=== PATIENT | male | born 1980 | race Caucasian/White ===

== ENCOUNTER 2021-03-23 20:00 | Outpatient (CLI) | payer OTHER, SELFPAY | END 2021-03-23 20:01 | disposition home or self-care (01) | LOC: SLEEP 03-24 06:18 | PROVIDERS: Family Provider Family Medicine; PCP Family Medicine; Visit Provider Family Medicine | DX: G47.33 Obstructive sleep apnea (adult) (pediatric) (principal) | CPT/HCPCS: 95811 ==

== ENCOUNTER → 2021-11-03 13:46 | Outpatient (BNVA) | payer OTHER, SELFPAY | PROVIDERS: Family Provider Family Medicine; PCP Family Medicine; Visit Provider Internal Medicine Pulmonary Disease | DX: G47.33 Obstructive sleep apnea (adult) (pediatric) (principal); E66.01 Morbid (severe) obesity due to excess calories; Z68.42 Body mass index [BMI] 45.0-49.9, adult; R06.02 Shortness of breath; Z87.891 Personal history of nicotine dependence; Z91.19 Patient's noncompliance with other medical treatment and regimen | CPT/HCPCS: 99204 ==

== ENCOUNTER 2022-01-21 13:04 | Outpatient (CLI) | payer OTHER, SELFPAY | END 2022-01-21 13:05 | disposition home or self-care (01) | LOC: RT 13:04 | PROVIDERS: PCP Family Medicine; Visit Provider Internal Medicine Pulmonary Disease | DX: G47.33 Obstructive sleep apnea (adult) (pediatric) (principal); E66.01 Morbid (severe) obesity due to excess calories; Z68.42 Body mass index [BMI] 45.0-49.9, adult | CPT/HCPCS: 94010; 94618; 94726; 94729 ==

== ENCOUNTER → 2022-03-05 10:48 | Outpatient (BNVA) | payer OTHER, SELFPAY | PROVIDERS: PCP Family Medicine; Visit Provider Internal Medicine Pulmonary Disease | DX: G47.33 Obstructive sleep apnea (adult) (pediatric) (principal); E66.01 Morbid (severe) obesity due to excess calories; Z68.42 Body mass index [BMI] 45.0-49.9, adult | CPT/HCPCS: 99214 ==

== ENCOUNTER 2022-06-18 15:17 | Emergency (ER) | payer OTHER, SELFPAY ==
[2022-06-18 15:26] VITALS: BP 143/88; PULSE 86; RESP 16; TEMP 36.6; O2SAT 96; BMI 52.3
[2022-06-18 16:00] LABS: Basophils % 0.5 %; Eosinophils # 0.2 10^3/uL (0.0-0.8); Eosinophils % 3.4 %; Hematocrit 42.3 % (42.0-52.0); Hemoglobin 13.5 g/dL (11.7-16.6); Lymphocytes # 1.2 10^3/uL (0.8-4.8); Lymphocytes % 21.2 %; Mean Corpuscular HGB Conc 31.9 g/dL (30.0-36.0); Mean Platelet Volume 9.8 fL (7.4-10.4); Monocytes # 0.4 10^3/uL (0.2-0.9); Monocytes % 7.1 %; Neutrophils # 3.79 10^3/uL (1.8-7.7); Neutrophils % 67.4 %; Nucleated Red Blood Cells % 0 %; Platelet Count 204 10^3/cmm (130-400); Red Blood Count 4.65 10^6/uL (4.1-5.3); Red Cell Distribution Width 12.3 % (12.1-15.1); White Blood Count 5.6 10^3/uL (4.0-10.0)
[2022-06-18 16:25] LABS: Alanine Aminotransferase 15 U/L (0-41); Albumin Level 3.8 g/dL (3.5-5.2); Alkaline Phosphatase 69 U/L (40-130); Anion Gap 13.8 (5-19); Aspartate Amino Transferase 12 U/L (0-40); Blood Urea Nitrogen 15 mg/dL (6-20); Calcium 8.9 mg/dL (8.5-10.5); Carbon Dioxide 28 mmol/L (22-29); Chloride 100 mmol/L (98-107); Globulin 2.2 g/dL (1.3-4.6); Glomerular Filtration Rate 66.4 mL/min (90-130); Glucose 127 mg/dL (65-115); Osmolality Calculated 288 mOsm/kg (285-295); Potassium 3.8 mmol/L (3.5-5.1); Sodium 138 mmol/L (136-145); Total Bilirubin 0.3 mg/dL (0.15-1.2)
--- NOTE | 2022-06-18 16:29 | PC.PHAR ---
[facility]ED [facility] AT 4:30 PM 06/18/22
--- NOTE | 2022-06-18 16:31 | ED_ITS ---
HPI - GI Bleed General: Chief complaint: GI Bleed Stated complaint: rectal bleeding Time Seen by Provider: 06/18/22 16:22 History of Present Illness: 41-year-old male patient comes in today for complaints of bleeding from the rectum. Patient reports he had a bowel movement and noticed blood in the toilet afterwards. Patient denies any pain or discomfort. Patient has a history of anxiety, high cholesterol, hypertension, and obesity. Patient reports the blood was bright red. Associated symptoms: Denies fever(s) or rash Review of Systems Const: Denies: fever(s) Card: Denies: chest pain Resp: Denies: dyspnea GI: Reports: hematochezia : Denies: flank pain Musc: Denies: back pain Skin/Breast: Denies: rash PFSH ED PFSH: Medical History Hypertension KATHERINE (obstructive sleep apnea) Social History Smoking and tobacco status: former smoker Quit status (tobacco): has quit using tobacco Year quit tobacco: 2009 Former quit date comment: 1ppd x 4-5 years Second hand smoke exposure: Yes Physical Exam Const: COMMON NORMALS: alert HENMT: COMMON NORMALS: normocephalic HEAD & SCALP: normocephalic Neck/C-Spine: COMMON NORMALS: full ROM Resp: COMMON NORMALS: normal respiratory effort Cardio: COMMON NORMALS: regular rate and regular rhythm RATE: regular rate RHYTHM: regular rhythm GI: COMMON NORMALS: Soft to palpation and non-tender PALPATION: Yes Soft to palpation RECTAL EXAM: Yes normal sphincter tone, Yes heme positive stool and Yes hemorrhoids : COMMON NORMALS: Yes Testes normal Extremity: COMMON NORMALS: normal to inspection Neuro: SENSORIUM/ORIENTATION: Yes alert Skin: COMMON NORMALS: turgor normal GENERAL SKIN EXAM: turgor normal Course Vital Signs: Vital signs: Vital Signs Temperature 98 F 06/18/22 15:26 Pulse Rate 86 06/18/22 15:26 Respiratory Rate 14 06/18/22 16:53 Blood Pressure 143/88 06/18/22 15:26 Pulse Oximetry 96 06/18/22 15:26 Oxygen Delivery Me thod Room Air 06/18/22 15:26 MDM - GI Bleed Medical Decision Making 41-year-old male patient comes in today for complaints of blood in stool. On exam patient has no abdominal pain. Skin is warm and dry. Vital signs are normal. Rectal examination noted multiple large external hemorrhoids and faint blood. Digital exam noted internal hemorrhoids and a small amount of blood. Hemoccult was positive. Differential diagnosis includes not limited to colitis, hemorrhoids, anal fissure. No signs of severe infection or illness was noted. I believe the patient probably has hemorrhoids. We will refer for gastroenterology/surgical follow-up for further evaluation with endoscopy to rule out other causes of blood in stool. Laboratory values were unremarkable. No signs of significant anemia was noted. Patient reported understanding of care plan and need for follow-up or return to the ER. Lab Data 06/18/22 15:43 06/18/22 15:43 Laboratory Results WBC 5.6 10^3/uL (4.0-10.0) 06/18/22 15:43 RBC 4.65 10^6/uL (4.1-5.3) 06/18/22 15:43 Hgb 13.5 g/dL (11.7-16.6) 06/18/22 15:43 Hct 42.3 % (42.0-52.0) 06/18/22 15:43 MCV 91.0 fl (80-94) 06/18/22 15:43 MCH 29.0 pg (28.0-34.0) 06/18/22 15:43 MCHC 31.9 g/dL (30.0-36.0) 06/18/22 15:43 RDW 12.3 % (12.1-15.1) 06/18/22 15:43 Plt Count 204 10^3/cmm (130-400) 06/18/22 15:43 MPV 9.8 fL (7.4-10.4) 06/18/22 15:43 Neut % (Auto) 67.4 % 06/18/22 15:43 Lymph % (Auto) 21.2 % 06/18/22 15:43 [place] % (Auto) 7.1 % 06/18/22 15:43 Eos % (Auto) 3.4 % 06/18/22 15:43 Baso % (Auto) 0.5 % 06/18/22 15:43 Neut # (Auto) 3.79 10^3/uL (1.8-7.7) 06/18/22 15:43 Lymph # (Auto) 1.2 10^3/uL (0.8-4.8) 06/18/22 15:43 [place] # (Auto) 0.4 10^3/uL (0.2-0.9) 06/18/22 15:43 Eos # (Auto) 0.2 10^3/uL (0.0-0.8) 06/18/22 15:43 Baso # (Auto) 0.0 10^3/uL (0.0-0.1) 06/18/22 15:43 Nucleated RBC % (auto) 0 % 06/18/22 15:43 Nucleated RBCs # 0.0 /100WBC 06/18/22 15:43 Sodium 138 mmol/L (136-145) 06/18/22 15:43 Potassium 3.8 mmol/L (3.5-5.1) 06/18/22 15:43 Chloride 100 mmol/L (98-107) 06/18/22 15:43 Carbon Dioxide 28 mmol/L (22-29) 06/18/22 15:43 Anion Gap 13.8 (5-19) 06/18/22 15:43 BUN 15 mg/dL (6-20) 06/18/22 15:43 Creatinine 1.2 mg/dL (0.7-1.2) 06/18/22 15:43 GFR Calculation 66.4 mL/min (90-130) L 06/18/22 15:43 Glucose 127 mg/dL (65-115) H 06/18/22 15:43 Calculated Osmolality 288 mOsm/kg (285-295) 06/18/22 15:43 Calcium 8.9 mg/dL (8.5-10.5) 06/18/22 15:43 Total Bilirubin 0.3 mg/dL (0.15-1.2) 06/18/22 15:43 AST 12 U/L (0-40) 06/18/22 15:43 ALT 15 U/L (0-41) 06/18/22 15:43 Alkaline Phosphatase 69 U/L (40-130) 06/18/22 15:43 Total Protein 6.0 g/dL (6.6-8.7) L 06/18/22 15:43 Albumin 3.8 g/dL (3.5-5.2) 06/18/22 15:43 Globulin 2.2 g/dL (1.3-4.6) 06/18/22 15:43 Discharge Plan Discharge Patient Disposition: Home Clinical Impression: Hemorrhoids, internal, with bleeding Condition: Stable Prescriptions: New Anusol-HC 25 mg suppository 25 mg OH BID 14 Days Qty: 24 0RF Hemorrhoidal(PE-min oil-shanel) 0.25-14-74.9 % ointment 1 applic OH TID Qty: 56 0RF Colace 100 mg capsule 100 mg PO BID Qty: 60 0RF cephalexin 500 mg capsule 500 mg PO BID 7 Days Qty: 14 0RF No Action sertraline 200 mg capsule 200 mg PO DAILY pravastatin 40 mg tablet 40 mg PO DAILY hydrochlorothiazide 12.5 mg tablet 12.5 mg PO DAILY ketoconazole 2 % cream 1 applic topical BID Qty: 30 2RF Rx Instructions: To pink scaly areas on face as needed ketoconazole 2 % shampoo 1 applic topical .2 x weekly Qty: 120 3RF Rx Instructions: Lather into scalp 2 times weekly. Allow to sit on scalp for 5 minutes before rinsing. valacyclovir 500 mg tablet 500 mg PO BID PRN (Reason: outbreak) prazosin 1 mg capsule 3 mg PO .qhs bupropion HCl 100 mg tablet 100 mg PO DAILY Discharge Orders: Discharge ED (Routine); Ordered 06/18/22 Ordered By: Josue Lo Referrals: Shannon Kaminski MD [Primary Care Provider] - Discharge Diet: Usual diet Discharge Activity: Resume usual activity Patient Instructions: Hemorrhoids (ED) Activity Restrictions/Additional Instructions: Follow-up with primary care. competitive intelligence manager will contact you for follow-up with GI specialist for further evaluation and treatment. Drink plenty of water. Use stool softener to keep stools soft and moving easily. Avoid sitting for long long periods on the toilet. Use Anusol suppository twice a day for the next 2 weeks to help with swelling and inflammation of the hemorrhoid. Use hemorrhoid ointment for further comfort. Return to ER for worsening symptoms such as high fever, severe abdominal pain, feeling of fainting. Coding Level of Care Code ED Vegetable Canner for Chg Fwd
[2022-06-18 16:53] VITALS: RESP 14
== END 2022-06-18 17:04 | disposition home or self-care (01) ==
PROVIDERS: Emergency Provider Nurse Practitioner Family; PCP Family Medicine
DX: K64.8 Other hemorrhoids (principal); I10 Essential (primary) hypertension; Z87.891 Personal history of nicotine dependence
CPT/HCPCS: 36415; 80053; 85025; 99284

== ENCOUNTER → 2022-09-02 13:09 | Outpatient (BNVA) | payer OTHER, SELFPAY | PROVIDERS: PCP Family Medicine; Visit Provider Internal Medicine Pulmonary Disease | DX: G47.33 Obstructive sleep apnea (adult) (pediatric) (principal); E66.01 Morbid (severe) obesity due to excess calories; Z68.43 Body mass index [BMI] 50.0-59.9, adult; Z91.199 Patient's noncompliance with other medical treatment and regimen due to unspecified reason | CPT/HCPCS: 99214 ==

== ENCOUNTER → 2023-03-03 14:54 | Outpatient (BNVA) | payer OTHER, SELFPAY | PROVIDERS: PCP Family Medicine; Visit Provider Internal Medicine Pulmonary Disease | DX: G47.33 Obstructive sleep apnea (adult) (pediatric) (principal); E66.01 Morbid (severe) obesity due to excess calories; Z68.39 Body mass index [BMI] 39.0-39.9, adult; Z91.198 Patient's noncompliance with other medical treatment and regimen for other reason | CPT/HCPCS: 99214 ==

== ENCOUNTER → 2023-06-17 11:07 | Outpatient (BNVA) | payer OTHER, SELFPAY | PROVIDERS: PCP Family Medicine; Visit Provider Internal Medicine Pulmonary Disease | DX: G47.33 Obstructive sleep apnea (adult) (pediatric) (principal); E66.01 Morbid (severe) obesity due to excess calories; Z68.42 Body mass index [BMI] 45.0-49.9, adult; Z87.891 Personal history of nicotine dependence | CPT/HCPCS: 99214 ==

== ENCOUNTER 2023-09-17 01:18 | Emergency (ER) | payer OTHER, SELFPAY ==
[2023-09-17 01:26] VITALS: BP 155/105; PULSE 99; RESP 16; TEMP 36.7; O2SAT 95; BMI 53.8
--- NOTE | 2023-09-17 01:39 | W.ED.DENTAL ---
HPI - Dental/Oral General: Chief complaint: Dental/Oral Stated complaint: dental pain left side upper jaw into ear lower jaw Time Seen by Provider: 09/17/23 01:36 History of Present Illness: Patient presents here with complaints of left upper molar cavity and pain. He says he been to his doctor within the last week and they prescribed him amoxicillin which he has been taking but it did not seem to work. Patient said this afternoon he had a sharp increase in pain now feels like it is going up into his jaw into his ear. Patient did take an old oxycodone he had about 2 hours ago with no relief. Patient says his dentist tried to get him in somewhere to have a crown or root canal placed. Related Data Home Medications Medication Instructions Recorded Confirmed hydrochlorothiazide 12.5 mg tablet 12.5 mg PO DAILY 06/18/21 06/17/23 pravastatin 40 mg tablet 40 mg PO DAILY 06/18/21 06/17/23 sertraline 200 mg capsule 200 mg PO DAILY 06/18/21 06/17/23 valacyclovir 500 mg tablet 500 mg PO BID PRN outbreak 11/03/21 06/17/23 prazosin 1 mg capsule 4 mg PO .qhs 03/03/23 06/17/23 Previous Rx's Medication Instructions Recorded ketoconazole 2 % shampoo 1 applic topical .2 x weekly #120 06/18/21 mL ketoconazole 2 % topical cream 1 applic topical BID #30 grams 06/18/21 clindamycin HCl 300 mg capsule 300 mg PO BID 7 days #14 caps 09/17/23 meloxicam 7.5 mg tablet 7.5 mg PO .Twice daily #14 tabs 09/17/23 Allergies Allergy/AdvReac Type Severity Reaction Status Date / Time simvastatin Allergy Unknown Unknown Verified 06/17/23 11:17 trazodone Allergy Unknown Unknown Uncoded 06/17/23 11:17 Review of Systems General: Reports: 10 or more systems reviewed and unremarkable except in HPI and below PFS ED PFSH: Medical History KATHERINE (obstructive sleep apnea) Hypertension Social History Smoking and tobacco/nicotine status: former use of tobacco/nicotine Quit status (tobacco/nicotine): has quit using Year quit tobacco: 2009 Former quit date comment: 1ppd x 4-5 years Second hand smoke exposure: Yes Physical Exam Const: COMMON NORMALS: no acute distress, average body habitus, patient oriented x3, no limitations, healthy appearing, alert and well nourished HENMT: COMMON NORMALS: normocephalic, atraumatic, hearing grossly normal bilaterally and external ears normal; dentition not normal (Left upper posterior molar necrotic) HEAD & SCALP: normocephalic and atraumatic EXTERNAL EAR: Yes external ears normal Eye: COMMON NORMALS: Equal, round and reactive pupils present, EOMs intact bilaterally, conjunctivae normal and no scleral icterus CONJUNCTIVA: Yes conjunctivae normal PUPIL: Yes Equal, round and reactive pupils present Neck/C-Spine: COMMON NORMALS: full ROM, no lymphadenopathy, supple, no meningeal signs, no JVD and Thyroid normal THYROID: Thyroid normal Cardio: COMMON NORMALS: no JVD Neuro: COMMON NORMALS: patient oriented x3 SENSORIUM/ORIENTATION: Yes alert MENINGEAL SIGNS: Yes no meningeal signs Course Vital Signs: Vital signs: Vital Signs Temperature 98.1 F 09/17/23 01:26 Pulse Rate 99 09/17/23 01:26 Respiratory Rate 16 09/17/23 01:26 Blood Pressure 155/105 09/17/23 01:26 Pulse Oximetry 95 09/17/23 01:26 Oxygen Delivery Me thod Room Air 09/17/23 01:26 MDM - Dental/Oral Medical Decision Making Patient will be placed on clindamycin and meloxicam. Patient was given a shot of Toradol and clindamycin p.o. in the ER today patient will be discharged home. Differential Diagnosis Likely dental caries Medical Records I reviewed the patient's medical records. Lab Data I reviewed the patient's lab results. No radiology studies performed this visit Discharge Plan Discharge Patient Disposition: Home Clinical Impression: Dental caries Condition: Stable Prescriptions: New clindamycin HCl 300 mg capsule 300 mg PO BID 7 Days Qty: 14 0RF meloxicam 7.5 mg tablet 7.5 mg PO .Twice daily Qty: 14 0RF No Action sertraline 200 mg capsule 200 mg PO DAILY pravastatin 40 mg tablet 40 mg PO DAILY hydrochlorothiazide 12.5 mg tablet 12.5 mg PO DAILY ketoconazole 2 % cream 1 applic topical BID Qty: 30 2RF Rx Instructions: To pink scaly areas on face as needed ketoconazole 2 % shampoo 1 applic topical .2 x weekly Qty: 120 3RF Rx Instructions: Lather into scalp 2 times weekly. Allow to sit on scalp for 5 minutes before rinsing. valacyclovir 500 mg tablet 500 mg PO BID PRN (Reason: outbreak) prazosin 1 mg capsule 4 mg PO .qhs Discharge Orders: Discharge ED (Routine); Ordered 09/17/23 Ordered By: Chevy Peacock Referrals: Shannon Kaminski MD [Primary Care Provider] - 1 week Patient Instructions: Toothache (ED) Activity Restrictions/Additional Instructions: Please take all your medicine as directed. Please follow-up with your dentist for definitive evaluation and treatment. Coding Level of Care Code ED Commercial Escrow Officer for Destinee Raman
[2023-09-17] MEDS: ketorolac 60 mg/2 mL INJ IM (01:57)
[2023-09-17] MEDS: clindamycin 150 mg Capsule 300 MG PO (01:58)
[2023-09-17 02:22] VITALS: BP 162/100; PULSE 102; RESP 18; O2SAT 97
== END 2023-09-17 02:19 | disposition home or self-care (01) ==
PROVIDERS: Emergency Provider Emergency Medicine; PCP Family Medicine
DX: K02.9 Dental caries, unspecified (principal); I10 Essential (primary) hypertension; Z87.891 Personal history of nicotine dependence
CPT/HCPCS: 96372; 99284; J1885

== ENCOUNTER 2024-01-20 14:18 | Emergency (ER) | payer OTHER, SELFPAY ==
[2024-01-20 14:54] VITALS: BP 158/96; PULSE 77; RESP 18; TEMP 36.6; O2SAT 99; BMI 53.1
--- NOTE | 2024-01-20 16:33 | ED_ITS ---
HPI - Dental/Oral 2 General: Chief complaint: Dental/Oral Stated complaint: extreme right tooth pain Time Seen by Provider: 01/20/24 16:08 Source: patient Mode of arrival: ambulatory Limitations: no limitations History of Present Illness: Patient is a 43-year-old male who presents to ED today with a complaint of a left upper molar toothache. Patient states he has significant periodontal disease. He states he has seen a dentist as well as a periodontal specialist and is in the process of coming up with a treatment plan most likely involves multiple extractions. He states this particular molar has bothered him intermittently for quite some time. He has not noticed any swelling to his face or surrounding the tooth. He is continuing to eat and drink normally. No fevers. He has not noticed any severe headache or visual changes. MD Complaint: tooth pain Teeth map: 1. Onset (ago): day(s) Duration: constant Severity: severe Relieving factors: nothing Exacerbating factors: nothing Context: history of dental caries Associated symptoms: Reports no associated symptoms; Denies ear or mastoid pain, fever(s) or odynophagia Related Data Home Medications Medication Instructions Recorded Confirmed hydrochlorothiazide 12.5 mg tablet 12.5 mg PO DAILY 06/18/21 06/17/23 pravastatin 40 mg tablet 40 mg PO DAILY 06/18/21 06/17/23 sertraline 200 mg capsule 200 mg PO DAILY 06/18/21 06/17/23 valacyclovir 500 mg tablet 500 mg PO BID PRN outbreak 11/03/21 06/17/23 prazosin 1 mg capsule 4 mg PO .qhs 03/03/23 06/17/23 Previous Rx's Medication Instructions Recorded ketoconazole 2 % shampoo 1 applic topical .2 x weekly #120 06/18/21 mL ketoconazole 2 % topical cream 1 applic topical BID #30 grams 06/18/21 meloxicam 7.5 mg tablet 7.5 mg PO .Twice daily #14 tabs 09/17/23 penicillin V potassium 500 mg 500 mg PO Q8H 7 days #21 tabs 01/20/24 tablet tramadol 50 mg tablet 50 mg PO Q6H PRN pain #8 tabs 01/20/24 Allergies Allergy/AdvReac Type Severity Reaction Status Date / Time simvastatin Allergy Unknown Unknown Verified 06/17/23 11:17 trazodone Allergy Unknown Unknown Verified 12/06/23 14:27 Review of Systems 2 Const: Denies: fever(s), chills, body aches, fatigue or malaise ENMT: Reports: dental pain; Denies: throat pain, uvular edema, enlarged tonsils, odynophagia, swelling of lips/tongue, oral sores, ear or mastoid pain, nasal congestion or sinus pain Card: Denies: chest pain GI: Denies: nausea or vomiting Musc: Denies: neck pain Neuro: Denies: headache(s) PFSH ED 2 PFSH: Medical History KATHERINE (obstructive sleep apnea) Hypertension Social History Smoking and tobacco/nicotine status: former use of tobacco/nicotine Quit status (tobacco/nicotine): has quit using Year quit tobacco: 2009 Former quit date comment: 1ppd x 4-5 years Second hand smoke exposure: Yes Physical Exam 2 Const: COMMON NORMALS: no acute distress, patient oriented x3, no limitations, alert and well nourished GENERAL APPEARANCE: cooperative NUTRITIONAL APPEARANCE: obese morbidly obese (BMI 53.1) HENMT: FACE & SINUS: normal facial exam and sinuses nontender TEETH & GINGIVA: Yes caries, Yes gingiva abnormal (widespread gingivitis) and Yes poor dentition TEETH & GINGIVA IMAGES: 1. no drainable abscess formation THROAT: no uvular edema Neck/C-Spine: COMMON NORMALS: no lymphadenopathy GENERAL: No anterior neck swelling and No submandibular swelling Neuro: COMMON NORMALS: patient oriented x3 SENSORIUM/ORIENTATION: Yes alert Course 2 Vital Signs: Vital signs: Vital Signs Temperature 97.9 F 01/20/24 14:54 Pulse Rate 68 01/20/24 16:52 Respiratory Rate 18 01/20/24 14:54 Blood Pressure 179/101 01/20/24 16:52 Pulse Oximetry 97 01/20/24 16:52 Oxygen Delivery Me thod Room Air 01/20/24 16:52 MDM - Dental/Oral Medical Decision Making Patient will be placed on antibiotics and given something he may take for pain sparingly. Recommend prompt dental follow-up. Return to ED precautions given. Differential Diagnosis Likely dental caries and toothache Medical Records I reviewed the patient's medical records. No radiology studies performed this visit Discharge Plan Discharge Patient Disposition: Home Clinical Impression: Dental caries, Toothache Condition: Stable Prescriptions: New penicillin V potassium 500 mg tablet 500 mg PO Q8H 7 Days Qty: 21 0RF tramadol 50 mg tablet 50 mg PO Q6H PRN (Reason: pain) Qty: 8 0RF No Action sertraline 200 mg capsule 200 mg PO DAILY pravastatin 40 mg tablet 40 mg PO DAILY hydrochlorothiazide 12.5 mg tablet 12.5 mg PO DAILY ketoconazole 2 % cream 1 applic topical BID Qty: 30 2RF Rx Instructions: To pink scaly areas on face as needed ketoconazole 2 % shampoo 1 applic topical .2 x weekly Qty: 120 3RF Rx Instructions: Lather into scalp 2 times weekly. Allow to sit on scalp for 5 minutes before rinsing. valacyclovir 500 mg tablet 500 mg PO BID PRN (Reason: outbreak) prazosin 1 mg capsule 4 mg PO .qhs meloxicam 7.5 mg tablet 7.5 mg PO .Twice daily Qty: 14 0RF Discharge Orders: Discharge ED (Routine); Ordered 01/20/24 Ordered By: Moira Pardo Referrals: Shannon Kaminski MD [Primary Care Provider] - Patient Instructions: Toothache (ED) Activity Restrictions/Additional Instructions: Please follow-up with your dentist as soon as possible for further evaluation and treatment of your dental pain. Coding Level of Care Code ED Informatica for Destinee Raman
[2024-01-20] MEDS: ketorolac 60 mg/2 mL INJ IM (16:40)
[2024-01-20 16:52] VITALS: BP 179/101; PULSE 68; O2SAT 97
[2024-01-20 16:53] VITALS: BP 179/101; PULSE 68; O2SAT 97
== END 2024-01-20 17:00 | disposition home or self-care (01) ==
PROVIDERS: Emergency Provider Physician Assistant; PCP Family Medicine
DX: K02.9 Dental caries, unspecified (principal); K08.89 Other specified disorders of teeth and supporting structures; Z87.891 Personal history of nicotine dependence
CPT/HCPCS: 96372; 99284; J1885

== ENCOUNTER 2024-01-22 11:35 | Emergency (ER) | payer OTHER, SELFPAY ==
[2024-01-22 11:36] VITALS: BP 168/118; PULSE 63; RESP 16; TEMP 36.7; O2SAT 98; BMI 53.1
--- NOTE | 2024-01-22 12:12 | W.ED.DENTAL ---
HPI - Dental/Oral General: Chief complaint: Dental/Oral Stated complaint: severe tooth pain Time Seen by Provider: 01/22/24 11:51 History of Present Illness: Patient presents emergency room with continued dental pain. He was started on antibiotics and tramadol on Tuesday but he says the pain is just too much and the tramadol is not helping. He plans on seeing his dentist tomorrow. Related Data Home Medications Medication Instructions Recorded Confirmed hydrochlorothiazide 12.5 mg tablet 12.5 mg PO DAILY 06/18/21 06/17/23 pravastatin 40 mg tablet 40 mg PO DAILY 06/18/21 06/17/23 sertraline 200 mg capsule 200 mg PO DAILY 06/18/21 06/17/23 valacyclovir 500 mg tablet 500 mg PO BID PRN outbreak 11/03/21 06/17/23 prazosin 1 mg capsule 4 mg PO .qhs 03/03/23 06/17/23 Previous Rx's Medication Instructions Recorded ketoconazole 2 % shampoo 1 applic topical .2 x weekly #120 06/18/21 mL ketoconazole 2 % topical cream 1 applic topical BID #30 grams 06/18/21 meloxicam 7.5 mg tablet 7.5 mg PO .Twice daily #14 tabs 09/17/23 penicillin V potassium 500 mg 500 mg PO Q8H 7 days #21 tabs 01/20/24 tablet tramadol 50 mg tablet 50 mg PO Q6H PRN pain #8 tabs 01/20/24 diclofenac sodium 50 mg 50 mg PO BID PRN pain #14 tabs 01/22/24 tablet,delayed release hydrocodone 5 mg-acetaminophen 325 1 tab PO Q8H PRN pain #14 tabs 01/22/24 mg tablet Allergies Allergy/AdvReac Type Severity Reaction Status Date / Time simvastatin Allergy Unknown Unknown Verified 01/22/24 11:44 trazodone Allergy Unknown Unknown Verified 01/22/24 11:44 Review of Systems Narrative: Constitutional symptoms: Negative except as documented in HPI. Skin symptoms: Negative except as documented in HPI. Eye symptoms: Negative except as documented in HPI. ENMT symptoms: Negative except as documented in HPI. Respiratory symptoms: Negative except as documented in HPI. Cardiovascular symptoms: Negative except as documented in HPI. Gastrointestinal symptoms: Negative except as documented in HPI. Genitourinary symptoms: Negative except as documented in HPI. Musculoskeletal symptoms: Negative except as documented in HPI. Neurologic symptoms: Negative except as documented in HPI. Psychiatric symptoms: Negative except as documented in HPI. Endocrine symptoms: Negative except as documented in HPI. PFSH ED PFSH: Medical History KATHERINE (obstructive sleep apnea) Hypertension Social History Smoking and tobacco/nicotine status: former use of tobacco/nicotine Quit status (tobacco/nicotine): has quit using Year quit tobacco: 2009 Former quit date comment: 1ppd x 4-5 years Second hand smoke exposure: Yes Physical Exam Narrative: EXAM NARRATIVE: General: Alert, no acute distress. Skin: warm and dry Head: Normocephalic Neck: Trachea midline Eye: Extraocular movements are intact. Ears, nose, mouth and throat: Oral mucosa moist. Some swelling around the affected molar on the top left. Poor dentition. Multiple caries. Respiratory: Respirations are non-labored Musculoskeletal: Normal ROM Neurological: Alert and oriented, No focal neurological deficit observed. Psychiatric: Cooperative, appropriate mood & affect. Course Vital Signs: Vital signs: Vital Signs Temperature 98.0 F 01/22/24 11:36 Pulse Rate 63 01/22/24 11:36 Respiratory Rate 16 01/22/24 11:36 Blood Pressure 168/118 01/22/24 11:36 Pulse Oximetry 98 01/22/24 11:36 Oxygen Delivery Me thod Room Air 01/22/24 11:36 MDM - Dental/Oral Medical Decision Making Patient already on antibiotics. Assessment and plan: Dental infection Dental pain ? Hydrocodone in the emergency room. I will place him on some hydrocodone at home and some diclofenac for anti-inflammatory purposes - Discharged home - Discussed plan with patient. Answered any questions. - Evaluation and treatment of this problem were appropriate in the emergency setting. No radiology studies performed this visit Discharge Plan Discharge Patient Disposition: Home Clinical Impression: Dental caries, Toothache Condition: Stable Prescriptions: New hydrocodone-acetaminophen 5-325 mg tablet 1 tab PO Q8H PRN (Reason: pain) Qty: 14 0RF Rx Instructions: Take 1/2 to 1 tab every 8 hours as needed for pain diclofenac sodium 50 mg tablet,delayed release (DR/EC) 50 mg PO BID PRN (Reason: pain) Qty: 14 0RF No Action sertraline 200 mg capsule 200 mg PO DAILY pravastatin 40 mg tablet 40 mg PO DAILY hydrochlorothiazide 12.5 mg tablet 12.5 mg PO DAILY ketoconazole 2 % cream 1 applic topical BID Qty: 30 2RF Rx Instructions: To pink scaly areas on face as needed ketoconazole 2 % shampoo 1 applic topical .2 x weekly Qty: 120 3RF Rx Instructions: Lather into scalp 2 times weekly. Allow to sit on scalp for 5 minutes before rinsing. valacyclovir 500 mg tablet 500 mg PO BID PRN (Reason: outbreak) prazosin 1 mg capsule 4 mg PO .qhs penicillin V potassium 500 mg tablet 500 mg PO Q8H 7 Days Qty: 21 0RF tramadol 50 mg tablet 50 mg PO Q6H PRN (Reason: pain) Qty: 8 0RF meloxicam 7.5 mg tablet 7.5 mg PO .Twice daily Qty: 14 0RF Discharge Orders: Discharge ED (Routine); Ordered 01/22/24 Ordered By: Yana El Referrals: Shannon Kaminski MD [Primary Care Provider] - Discharge Diet: Advance as tolerated Patient Instructions: Toothache (ED), Opioid Safety, Pain Management Activity Restrictions/Additional Instructions: Please follow-up with your dentist as soon as possible Thank you for choosing [facility] for your healthcare needs today. Please realize this is an emergency room and that we are providing you with a medical screening exam and this may not be complete and all inclusive of all the testing and or work up that you may need to determine your ailment or severity of your illness. You have been screened and evaluated and felt safe for discharge. Health conditions do change or evolve sometimes and as such it is important that you follow up with your Primary Doctor to be re checked, 3-5 days is a general good time frame for follow up. You are always welcome to return to the ED for re assessment if your symptoms are worsening or you have new concerns Coding Level of Care Code ED Insole Channeler for Destinee Raman
[2024-01-22] MEDS: HYDROcodone-acetaminophen 10-325 mg Tablet 1 TAB PO (12:15)
[2024-01-22 12:19] VITALS: BP 168/118; PULSE 63; O2SAT 98
== END 2024-01-22 12:21 | disposition home or self-care (01) ==
PROVIDERS: Emergency Provider Emergency Medicine; PCP Family Medicine
DX: K02.9 Dental caries, unspecified (principal); K08.89 Other specified disorders of teeth and supporting structures; Z87.891 Personal history of nicotine dependence; I10 Essential (primary) hypertension
CPT/HCPCS: 99283

== ENCOUNTER 2024-07-03 15:46 | Outpatient (CLI) | payer OTHER, SELFPAY ==
--- NOTE | 2024-07-03 16:05 | CT_ITS ---
WS: [id number] CT PARANASAL SINUSES HISTORY: RECURRENT/CHRONIC LEFT SINUSITIS TECHNIQUE: Contiguous 2.5 mm axial images obtained through the sinuses. Images are reconstructed in sagittal and coronal planes. All CT scans at [facility] use at least one of these dose optimization techniques: automated exposure control; mA and/or kV adjustment per patient size (includes targeted exams where dose is matched to clinical indication); or iterative reconstruction. DLP: 349.45 mGy.cm COMPARISON: None available. Frontal sinuses: Complete opacification of the frontal sinuses. Extension through the RIGHT frontoethmoid recess of the opacification. No destructive bone. Sphenoid sinus: Normal. Ethmoid sinuses: Mild ethmoid airspace disease. Maxillary sinus: Complete dense opacification of the LEFT maxillary sinus. No bone expansion. RIGHT maxillary sinus is clear. Ostiomeatal unit: Complete soft tissue opacification with widening of the LEFT ostiomeatal unit. Patent RIGHT ostiomeatal unit. Mild LEFT deviation of the nasal septum with a very small bony spur. Orbits and globes are normal. Upper cervical spine is normal. CT/CT sinus wo con* [id number] IMPRESSION: 1. Complete dense opacification of the frontal and LEFT maxillary sinus. 2. Obstruction of the LEFT ostiomeatal unit with sinus opacification. Widening of the LEFT ostiomeatal unit due to the mucoperiosteal disease. 3. No bone destruction.
== END 2024-07-03 15:47 | disposition home or self-care (01) ==
PROVIDERS: PCP Family Medicine; Visit Provider Family Medicine
DX: Z01.89 Encounter for other specified special examinations (principal); J34.89 Other specified disorders of nose and nasal sinuses; R93.89 Abnormal findings on diagnostic imaging of other specified body structures; J01.20 Acute ethmoidal sinusitis, unspecified; J34.2 Deviated nasal septum
CPT/HCPCS: 70486

== ENCOUNTER 2024-10-17 15:16 | Outpatient (CLI) | payer OTHER, SELFPAY ==
--- NOTE | 2024-10-17 15:22 | CTR_ITS ---
PROCEDURE INFORMATION: Exam: CT Neck With Contrast Exam date and time: 10/17/2024 3:45 PM Age: 43 years old Clinical indication: Prior surgery; Surgery date: <1 month; Right jaw pain after sinus surgery on oct 03; Additional info: Jaw pain/r mandibular/maxilla pain TECHNIQUE: Imaging protocol: Computed tomography of the neck with contrast. Radiation optimization: All CT scans at this facility use at least one of these dose optimization techniques: automated exposure control; mA and/or kV adjustment per patient size (includes targeted exams where dose is matched to clinical indication); or iterative reconstruction. Contrast material: OMNIPAQUE 350; Contrast volume: 100 ml; Contrast route: INTRAVENOUS (IV); COMPARISON: CT sinus wo con* [id number] 07/03/2024 4:23 PM RADIATION DOSE METRICS: Total DLP (mGy-cm): 337.09 FINDINGS: Paranasal sinuses: Previous left medial antrectomy. Mucosal disease and air-fluid level in left maxillary antrum. Aeration has substantially improved in comparison to the prior study. Salivary glands: Normal. Glands are normal in size. Pharynx: Unremarkable. No significant tonsillar enlargement. Larynx: Unremarkable. Epiglottis is normal. Thyroid: Normal. No enlarged or calcified nodules. Trachea: Visualized trachea is unremarkable. Lungs: Fracture of the mandibular alveolus between the left central and lateral mandibular incisors (numbers 23 and 24). Lymph nodes: Unremarkable. No lymphadenopathy. Bones/joints: Unremarkable. No acute fracture. Soft tissues: Unremarkable. No significant soft tissue swelling. No abscess. CT/CT neck w con* [id number] IMPRESSION: 1. Previous left medial antrectomy. Mucosal disease and air-fluid level in left maxillary antrum. Aeration has substantially improved in comparison to the prior study. 2. Fracture of the mandibular alveolus between the left central and lateral mandibular incisors (numbers 23 and 24).
[2024-10-17] MEDS: iohexol 350 mg/mL 500 mL Btl (per mL) IV (15:57)
== END 2024-10-17 15:17 | disposition home or self-care (01) ==
LOC: RAD 15:18
PROVIDERS: PCP Family Medicine; Visit Provider Nurse Practitioner Family
DX: R68.84 Jaw pain (principal)
CPT/HCPCS: 70491

== ENCOUNTER 2024-11-02 20:54 | Emergency (ER) | payer OTHER, SELFPAY ==
--- OUTSIDE RECORDS SUMMARY | 1999-02-06 19:00 | XMS_ITS | Continuity of Care Document ---
Author Organization [facility] Address [address] [place] [address] Phone Care Team Providers Care Senior Backup Administrator Name Role Phone No Information Unavailable Unavailable Medications Medication Instructions Dosage Effective Dates (start - stop) Status Comments No Drug Therapy Prescribed Advance Directives Directive Yes / No Effective Date File Name No Information Encounters Encounter Description Practice Location Reason(s) For Visit Diagnoses Date Provider Providers Copied on Encounter [facility], [address] [place] [address], [id number], [place] tel:[phone] No Information No Information Family History Family Member Type Diagnosis Age At Onset No Information Payers Payer name Insurance type Covered democrat ID Authoriza tion(s) No Information Social History Type Description Quantity Date Captured Comments Sex Male Smoking Status No Information Chief Complaint And Reason For Visit No Information History Of Present Illness Encounter Date Complaint History Of Prese nt Illness No Information Medications Administered Medication Instructions Dosage Effective Dates (start - stop) Status Comments No Drug Therapy Prescribed Instructions Date Instruction Additional Infor mation No Information Assessments Type Assessment Date No Information
--- OUTSIDE RECORDS SUMMARY | 2024-11-02 20:59 | XMS_ITS | Clinical Summary ---
[facility] Organization [facility] Address [address] [facility] Attn: [place] [address] Care Team Providers Care Heavy Equipment Service Manager Name Role Phone Josue Carrillo MD Primary Care Provider Allergies Active Allergy Reactions Criticality Noted Date Comments Bupropion Hcl Other (See Comments) 10/19/2023 anger Metformin Diarrhea Low 01/16/2024 Simvastatin Weakness Low 07/31/2019 Trazodone Other (See Comments) 07/31/2019 MUSCLE CRAMPS IN LOWER BODY Medications cholecalciferol , vitamin D3, 1,000 unit Take by mouth. 0 Active omega-3 fatty acids-fish oil 300-1,000 mg Capsule Take by mouth daily. 0 Active sertraline (ZOLOFT) 100 mg tablet Take 200 mg by mouth daily. 0 Active pravastatin (PRAVACHOL) 40 mg tablet Take 40 mg by mouth daily with supper. 0 Active prazosin (MINIPRESS) 2 mg capsule Take 4 mg by mouth. 4 Active amoxicillin-cla vulanate (AUGMENTIN) 875-125 mg tablet Take 1 Tablet by mouth 2 times daily. 4 Active empagliflozin (JARDIANCE) 25 mg tablet Take 12.5 mg by mouth. 5 Active fluocinonide (LIDEX) 0.05 % Solution Apply to affected area. 5 Active fluticasone propionate (FLONASE) 50 mcg/spray Anthony, Suspension nasal inhaler Administer in each nostril. 5 Active hydroCHLOROthia zide 25 mg tablet Take 12.5 mg by mouth. 5 Active ketoconazole (NIZORAL) 2 % Shampoo Apply to affected area. 5 Active methylPREDNISol one (MEDROL DOSPACK) 4 mg Tablets, Dose Pack take by mouth as directed on inside of package 5 Active OTHER TAKE 1 TABLET BY MOUTH EVERY 6 HOURS NEEDED FOR SINUS/CONGESTIO N 5 Active bi-level machine daily at bedtime. Bi-level at 16/12 cm/H2O with heated humidifier, mask of patient choice. Also supply heated tubing A4604 1/3mo,water chamber A7046 1/6mo,filter disp A7038 2/mo,Reusable filter A7039 1/6mo, Chin strap A7036 a/6mo AMERICO 99mo DX: KATHERINE (G47.33). 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 Gender Identity Male 10/19/2023 6:50 PM CDT Sexual Orientation Straight 10/19/2023 6: 50 PM CDT Last Filed Vital Signs Vital Sign Reading Time Taken Comments Blood Pressure 128/88 10/19/2023 2:39 PM CDT Pulse 84 07/09/2024 3:08 PM CDT Temperature - - Respiratory Rate - - Oxygen Saturation 96% 07/09/2024 3:08 PM CDT Inhaled Oxygen Concentration - - Weight 165.6 kg (365 lb) 07/09/2024 3:08 PM CDT Height 177.8 cm (5' 10 ) 07/09/2024 3:08 PM CDT Body Mass Index 52.37 07/09/2024 3:08 PM CDT Plan of Treatment Upcoming Encounters Date Type Department Care Team (Late st Contact Info) Description 08/15/2025 3:50 PM CDT Office Visit [facility] [address] [address] Edgar Putnam, MALISSA [address] [place] [address] Health Maintenance Due Date Last Done Comments DIABETES ANNUAL FOOT EXAM 10/27/1997 DIABETES MICROALBUMIN ANNUAL SCREEN 10/27/1997 LDL CHOLESTEROL ANNUAL 10/27/1997 HEPATITIS B VACCINES (1 of 3 - 19+ 3-dose series) 10/27/1998 DTAP/TDAP/TD VACCINES (1 - Tdap) 01/08/2002 01/08/20 02, 12/08/1998 HPV VACCINES (1 - 3-dose SCDM series) 10/27/2006 INFLUENZA VACCINE (#1) 2024 COLORECTAL SCREENING 10/27/2024 Colorectal Cancer Screening 10/27/2024 FIT-DNA Q 3 years 10/27/2024 FIT/FOBT Q 1 year 10/27/2024 Flex Sig/CT Colonography Q 5 years 10/27/2024 DIABETES HBA1C Q 6 MONTHS 12/14/2024 06/13/2024 DIABETES ANNUAL RETINAL EXAM 12/26/2024 12/27/2023 Insurance * Guarantor: [facility] Account Type Relation to Patient Date of Phone Billing Address Corporate Other DEFAULT ADDRESS [address] [employer] Care Teams Heavy Equipment Service Manager Relationship Specialty Start Date End Date Josue Carrillo MD [address] [place] [address] PCP - General Family Practice 04/04/19
--- OUTSIDE RECORDS SUMMARY | 2024-11-02 20:59 | XMS_ITS | Data Portability ---
Author Organization [facility] Address [address] [place] [address] Assessment No assessment recorded. Plan of Treatment Reminders Order Date Submit Date Provider Last Modified By Organization Details Last Modified Time Details Appointments None recorded. Lab None recorded. Referral None recorded. Procedures None recorded. Surgeries None recorded. Imaging electrocard iogram 2024 025 [email or web address] [facility] ([facility]), [address] [place] [address], [phone], 11:01:37 Medication Orders None recorded. Patient TargetsNo targets recorded. Patient InstructionsNo instructions recorded. Reason for Referral None Reported. Results Created Date Observation Date Name Description Value Unit Range Abnormal Flag Note LastModifiedBy Organization Detail LastModifiedTime 09/11/1909/10/2024 elect rocar diogr am No observ ation record ed. [facility]) [address] [place] [address], [phone], 09/11/2024 06:41:57 09/13/1909/10/2024 elect rocar diogr am No observ ation record ed. [facility]) [address] [place] [address], [phone], 09/12/2024 18:38:28 Result Notes None recorded. Medical Equipment None Reported. Vitals None Recorded Social History None recorded. Functional Status None recorded. Mental Status None recorded. Family History Nothing Reported. Medical History No medical history recorded. Immunizations Vaccine Type Date Status Note Provider Nam e and Address Organization Details Recorded Time COVID-19, mRNA, LNP-S, PF, 100 mcg/0.5mL dose or 50 mcg/0.25mL dose 08/06/2020 completed Not Available [facility] 10:20:[facility] COVID-19, mRNA, LNP-S, PF, 100 mcg/0.5mL dose or 50 mcg/0.25mL dose 09/03/2020 completed Not Available [facility] 10:20:43 Past Encounters Encounter ID Performer Location Encounter Start Date Encounter Closed Date Diagnosis/Indication Diagnosis SNOMED-CT Code Diagnosis ICD10 Code Diagnosis IMO Codes Diagnosis Note [id number] Prashant Calvillo MD [facility] ([facility]) [address] [place] [phone] 09/10/2024 10:20:05 09/10/2024 11:01:37 Preoperative procedure [id number] Z01.392 [id number] Health Concerns Section Related Observation LastModified by Organization Detai ls LastModified Time None Recorded Concern Status LastModified by Organization Details LastModified Time None Recorded Advance Directives Directive None Recorded Payers Insurance Date Sequence Insurance Name Policy Number Policy Pate Covered Member ID Pate Member ID Guarantor Name 09/10/2024 [employer] [facility] [place] [facility] [place] Matias Dillon [id number] Matias Dillon
--- OUTSIDE RECORDS SUMMARY | 2024-11-02 20:59 | XMS_ITS | Clinical Summary ---
Author Organization [facility] Address [address] [place] [address] Care Team Providers Care Commercial Credit Analyst Name Role Phone Josue Carrillo MD Primary Care Provider [phone] Allergies Active Allergy Reactions Criticality Noted Date Comments Simvastatin Weakness Low 07/31/2019 Trazodone Other (See Comments) 07/31/2019 MUSCLE CRAMPS IN LOWER BODY Medications buPROPion (WELLBUTRIN) 100 mg tablet Take 100 mg by mouth 2 times daily. Active sertraline (ZOLOFT) 100 mg tablet Take 200 mg by mouth daily. Active prazosin (MINIPRESS) 1 mg capsule Take 3 mg by mouth daily at bedtime. Active omega-3 fatty acids-fish oil 300-1,000 mg Capsule Take by mouth daily. Active pravastatin (PRAVACHOL) 40 mg tablet Take 40 mg by mouth daily with supper. Active cholecalciferol , vitamin D3, 1,000 unit Take by mouth. Active propranoloL (INDERAL) 10 mg tablet Take 1 Tablet (10 mg) by mouth 3 times daily. 90 Tablet 3 07/31/2019 Active methylPREDNISol one (MEDROL DOSPACK) 4 mg Tablets, Dose Pack Complete as instructed. 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[employer] Gender Identity Not on file Sexual Orientation Not on file Last Filed Vital Signs Vital Sign Reading Time Taken Comments Blood Pressure 121/87 07/31/2019 2:04 PM CDT Pulse 73 07/31/2019 2:04 PM CDT Temperature - - Respiratory Rate - - Oxygen Saturation - - Inhaled Oxygen Concentration - - Weight 138.8 kg (306 lb) 07/31/2019 2:04 PM CDT Height 175.3 cm (5' 9 ) 07/31/2019 2:04 PM CDT Body Mass Index 45.19 07/31/2019 2:04 PM CDT Plan of Treatment Health Maintenance Due Date Last Done Comments DTAP/TDAP/TD VACCINES (1 - Tdap) 10/27/1998 HEPATITIS B VACCINES (1 of 3 - 19+ 3-dose series) 10/09 HPV VACCINES (1 - 3-dose SCDM series) 10/27/2006 INFLUENZA VACCINE (#1) 2024 COLORECTAL SCREENING 10/27/2024 Colorectal Cancer Screening 10/27/2024 FIT-DNA Q 3 years 10/27/2024 FIT/FOBT Q 1 year 10/27/2024 Flex Sig/CT Colonography Q 5 years 10/27/2024 Care Teams Commercial Credit Analyst Relationship Specialty Start Date End Date Josue Carrillo MD [address] [facility] [place] [phone] PCP - General Family Practice 04/04/19
[2024-11-02 21:03] VITALS: BP 146/100; PULSE 77; RESP 16; TEMP 37; O2SAT 97; BMI 50.5
--- NOTE | 2024-11-02 21:08 | USR_ITS ---
PROCEDURE INFORMATION: Exam: US Duplex Right Upper Extremity Veins, Limited Exam date and time: 11/02/2024 9:22 PM Age: 44 years old Clinical indication: Pain; Arm, lower; Right; Additional info: Thrombus TECHNIQUE: Imaging protocol: Real-time duplex ultrasound of the right Upper Extremity with 2-D pan scale, color Doppler flow and spectral waveform analysis with image documentation. Limited exam focused on the right upper extremity veins. COMPARISON: CT neck w con* [id number] 10/17/2024 3:45 PM FINDINGS: Right deep veins: Unremarkable. Axillary and brachial veins are patent throughout without thrombus. Normal Doppler waveforms. Normal compressibility and/or augmentation response. Visualized internal jugular and subclavian veins are patent. Superficial veins: Unremarkable. Visualized cephalic and basilic veins are patent without thrombus. Soft tissues: Unremarkable. US/[place] [id number] IMPRESSION: No evidence of deep vein thrombosis.
--- NOTE | 2024-11-02 23:25 | W.ED.EXTPRO ---
HPI - Extremity Problem General: Chief complaint: Extremity Problem,Nontraumatic Stated complaint: Thinks has a blood clot in Rt arm Time Seen by Provider: 11/02/24 21:53 History of Present Illness: Patient is 44-year-old gentleman that reports to the emergency room with pain in his lower portion of his arm mainly that has been going on the last 3 days. Patient's family has a history of Leiden 5 mutation. Unknown if this is hormonal or heterozygous for Leiden 5 mutation. Both his sister, and his father. They both are on anticoagulation. Patient has never had a provoked or unprovoked DVT. Patient states he is unsure what is causing this pain in his right arm, and has not had a recent injury. No recent illness. No history of cancer that he is aware of. Associated symptoms: Deny chest pain, fever(s) or rash Related Data Home Medications ?Medication ?Instructions ?Recorded ?Confirmed hydrochlorothiazide 12.5 mg tablet 12.5 mg PO DAILY 06/18/21 06/17/23 pravastatin 40 mg tablet 40 mg PO DAILY 06/18/21 06/17/23 sertraline 200 mg capsule 200 mg PO DAILY 06/18/21 06/17/23 valacyclovir 500 mg tablet 500 mg PO BID PRN outbreak 11/03/21 06/17/23 prazosin 1 mg capsule 4 mg PO .qhs 03/03/23 06/17/23 Previous Rx's ?Medication ?Instructions ?Recorded ketoconazole 2 % shampoo 1 applic topical .2 x weekly #120 06/18/21 mL ketoconazole 2 % topical cream 1 applic topical BID #30 grams 06/18/21 meloxicam 7.5 mg tablet 7.5 mg PO .Twice daily #14 tabs 09/17/23 tramadol 50 mg tablet 50 mg PO Q6H PRN pain #8 tabs 01/20/24 diclofenac sodium 50 mg 50 mg PO BID PRN pain #14 tabs 01/22/24 tablet,delayed release hydrocodone 5 mg-acetaminophen 325 1 tab PO Q8H PRN pain #14 tabs 01/22/24 mg tablet apixaban 5 mg (74 tabs) tablets in See Rx Instructions PO .COMPLEX 11/02/24 a dose pack ([employer]liqu[employer] DVT-PE Treat #74 ea 30D Start) Allergies Allergy/AdvReac Type Severity Reaction Status Date / Time simvastatin Allergy Unknown Unknown Verified 01/22/24 11:44 trazodone Allergy Unknown Unknown Verified 01/22/24 11:44 metformin Allergy Unknown Verified 11/02/24 21:10 seafood Allergy Unknown Uncoded 11/02/24 21:10 Review of Systems General: Reports: 10 or more systems reviewed and unremarkable except in HPI and below Const: Denies: fever(s) or chills ENMT: Denies: throat pain or epistaxis Card: Denies: chest pain or palpitations Resp: Denies: dyspnea or productive cough GI: Denies: abdominal pain, nausea or vomiting : Denies: flank pain or difficulty urinating Musc: Denies: neck pain or back pain Skin/Breast: Denies: rash or pruritus Psych: Denies: anxiety or depression PFSH ED PFSH: Medical History (Updated 11/02/24 @ 23:27 by ERIBERTO Clarke) KATHERINE (obstructive sleep apnea) Hypertension Social History Smoking and tobacco/nicotine status: former use of tobacco/nicotine Quit status (tobacco/nicotine): has quit using Year quit tobacco: 2009 Former quit date comment: 1ppd x 4-5 years Second hand smoke exposure: Yes Physical Exam Const: COMMON NORMALS: no acute distress, average body habitus and patient oriented x3 HENMT: COMMON NORMALS: normocephalic and atraumatic HEAD & SCALP: normocephalic and atraumatic Eye: COMMON NORMALS: Equal, round and reactive pupils present, EOMs intact bilaterally and conjunctivae normal CONJUNCTIVA: Yes conjunctivae normal PUPIL: Yes Equal, round and reactive pupils present Lymph: LYMPHATIC: no lymphadenopathy noted Chest: COMMONS NORMALS: normal inspection of the chest and normal palpation of entire chest wall Resp: COMMON NORMALS: normal respiratory effort, No retractions and No use of accessory muscles Cardio: COMMON NORMALS: regular rate and regular rhythm RATE: regular rate RHYTHM: regular rhythm GI: COMMON NORMALS: Normal to inspection, nondistended, normoactive bowel sounds present, Soft to palpation, non-tender and No hepatosplenomegaly present PALPATION: Yes Soft to palpation and Yes No hepatosplenomegaly present : COMMON NORMALS: Yes no CVA tenderness BLADDER/KIDNEY EXAM: Yes no CVA tenderness Back/Pelvis: COMMON NORMALS: no CVA tenderness Extremity: COMMON NORMALS: full ROM and capillary refill normal RIGHT UPPER EXTREMITY: Yes upper arm Right upper arm: Yes inspection (Mild distention when compared to left arm) and Yes palpation ( mild tenderness, primarily in the forearm) and Yes lower arm (Mild tenderness in forearm) Neuro: COMMON NORMALS: patient oriented x3 Psych: COMMON NORMALS: mental status grossly normal, Normal thought process present and cooperative THOUGHT PROCESS: Normal thought process present Skin: NARRATIVE SKIN EXAM: There is minimal amount of red sheen in the middle of his distal forearm. Course Vital Signs: Vital signs: Vital Signs Temperature 98.6 F 11/02/24 21:03 Pulse Rate 74 11/02/24 23:46 Respiratory Rate 16 11/02/24 23:46 Blood Pressure 131/96 11/02/24 23:46 Pulse Oximetry 98 11/02/24 23:46 Oxygen Delivery Me thod Room Air 11/02/24 21:03 MDM - Extremity (Nontraumatic) Medical Decision Making Patient's ultrasound of his right arm is read as basilic upper and forearm DVT. His cephalic forearm is read as DVT. The radiologist believes these are chronic. Patient's symptoms are acute and he has never had this before. There is minimal redness around this area. I am going to treat as acute, and send to the specialist/desktop support specialist for further evaluation. It would behoove me not treat as acute, and send to the specialist since patient has never had this complaint before. Medical Records I reviewed the patient's medical records. Lab Data Radiology Impressions Venous Duplex 11/02/24 21:08 IMPRESSION: No evidence of deep vein thrombosis. ADDENDUM: 11/02/24 1605 Impression: Although there is no deep venous thrombosis there is superficial thrombosis involving the cephalic and basilic veins, possibly chronic. All radiology interpretation(s) finalized by discharge Discharge Plan Discharge Patient Disposition: Home Clinical Impression: Deep venous thrombosis of upper extremity Condition: Stable Prescriptions: New Eliquis DVT-PE Treat 30D Start 5 mg (74 tabs) tablets,dose pack See Rx Instructions .ROUTE .COMPLEX Qty: 74 0RF Rx Instructions: orally per package directions No Action sertraline 200 mg capsule 200 mg PO DAILY pravastatin 40 mg tablet 40 mg PO DAILY hydrochlorothiazide 12.5 mg tablet 12.5 mg PO DAILY ketoconazole 2 % cream 1 applic topical BID Qty: 30 2RF Rx Instructions: To pink scaly areas on face as needed ketoconazole 2 % shampoo 1 applic topical .2 x weekly Qty: 120 3RF Rx Instructions: Lather into scalp 2 times weekly. Allow to sit on scalp for 5 minutes before rinsing. valacyclovir 500 mg tablet 500 mg PO BID PRN (Reason: outbreak) prazosin 1 mg capsule 4 mg PO .qhs tramadol 50 mg tablet 50 mg PO Q6H PRN (Reason: pain) Qty: 8 0RF meloxicam 7.5 mg tablet 7.5 mg PO .Twice daily Qty: 14 0RF hydrocodone-acetaminophen 5-325 mg tablet 1 tab PO Q8H PRN (Reason: pain) Qty: 14 0RF Rx Instructions: Take 1/2 to 1 tab every 8 hours as needed for pain diclofenac sodium 50 mg tablet,delayed release (DR/EC) 50 mg PO BID PRN (Reason: pain) Qty: 14 0RF Discharge Orders: Discharge ED (Routine); Ordered 11/02/24 Ordered By: Sheila Ramey Referrals: Shannon Kaminski MD [Primary Care Provider, Family Practice] Eric Chacon MD [Hospitalist, Oncology] - 2 weeks Patient Instructions: Apixaban (By mouth) (Eliquis), Deep Vein Thrombosis (ED), Opioid Safety, Pain Management, Patient Portal & Srini Instructions Activity Restrictions/Additional Instructions: - Do not take ibuprofen, naproxen/Aleve for pain. Utilize Tylenol only for pain -If you have any injury/get hurt/hurt your head, there is a good chance you will need to come to the ED for further evaluation. If you have spontaneous bleeding in your urine, stool, there is a good chance you will need to come to the ED for further evaluation. If it is during the day, contact your doctor for nonemergency. - Your Eliquis, also noted your blood thinner, was sent to [facility] pharmacy as you requested -You received your first dose of Eliquis here, and this needs to be taken in the morning. Please obtain your dose in the morning. [facility] if [facility] is any issues -Take your medication as prescribed. Your DVT was read as chronic by the radiologist, however given your issues, I would consider this acute. I did refer you to Dr. Chacon, the desktop support specialist to further evaluate current events as an expert. -Utilize compression to your right upper extremity. There is chronic clot, that I believe is acute, in your upper and lower part of your arm. Print Language: Northern Irish Coding Level of Care Code ED Clearance Representative for Destinee Raman
[2024-11-02 23:46] VITALS: BP 131/96; PULSE 74; RESP 16; O2SAT 98
[2024-11-02] MEDS: HYDROcodone-acetaminophen 10-325 mg Tablet 1 TAB PO (23:55)
[2024-11-02] MEDS: HYDROcodone-acetaminophen 5-325 mg Tablet 2 TAB PO (23:55)
== END 2024-11-03 00:03 | disposition home or self-care (01) ==
PROVIDERS: Emergency Provider Physician Assistant; PCP Family Medicine
DX: I82.621 Acute embolism and thrombosis of deep veins of right upper extremity (principal); Z87.891 Personal history of nicotine dependence; I10 Essential (primary) hypertension
CPT/HCPCS: 93971; 99284; J9999

== ENCOUNTER 2024-11-20 07:51 | Oncology outpatient (recurring) (ONCR) | payer OTHER, SELFPAY | END 2024-12-07 23:59 | disposition home or self-care (01) | LOC: ONCMED 07:52 | PROVIDERS: PCP Family Medicine; Visit Provider Internal Medicine Medical Oncology | DX: I82.90 Acute embolism and thrombosis of unspecified vein (principal); Z87.891 Personal history of nicotine dependence; Z79.01 Long term (current) use of anticoagulants | CPT/HCPCS: 99205 ==